=== PATIENT | female | born 1995 | race Caucasian/White ===

== ENCOUNTER 2022-04-21 18:26 | Emergency (ER) | payer MEDICAID, OTHER ==
[~2022-04-21] VITALS: Ht 167.6 cm; Wt 130.0 kg
[2022-04-21 18:31] VITALS: BP 160/97
[2022-04-21] MEDS ORDERED: ACET15SO5 LEFT EAR (19:57)
== END 2022-04-21 20:45 | disposition home or self-care (01) ==
LOC: ER 18:26
DX: H60.92 Unspecified otitis externa, left ear (principal); R03.0 Elevated blood-pressure reading, without diagnosis of hypertension
CPT/HCPCS: 99282